=== PATIENT | female | born 1985 | race American Indian/Alaskan Native ===

== ENCOUNTER 2017-08-18 13:55 | Outpatient (CLI) | payer OTHER ==
[2017-08-18] MEDS ORDERED: LACTATED RINGERS 500 ML IV ONE (15:20)
[2017-08-18 15:38] VITALS: BP 109/67
[2017-08-18 15:45] LABS: Bacteria,Urine 1+ /HPF (Negative); Bilirubin,Urine NEG (Negative); Blood,Urine NEG (Negative); Color,Urine Yellow (Yellow); Protein,Urine <15 mg/dL mg/dL (Negative); Urobilinogen,Urine < 2.0 mg/dL (<2.0)
[2017-08-18] MEDS ORDERED: BRETHINE SUB-Q ONE ×2 (16:12→16:47)
== END 2017-08-18 17:15 | disposition home or self-care (01) ==
LOC: TRG 13:55
PROVIDERS: ATTEND Obstetrics & Gynecology
DX: Z34.93 Encounter for supervision of normal pregnancy, unspecified, third trimester (principal); Z3A.34 34 weeks gestation of pregnancy
CPT/HCPCS: 59025; 81001; 96360; 96361; 96372; J3105; J7120

== ENCOUNTER 2017-09-22 18:43 | Inpatient (IN) | payer OTHER ==
[2017-09-22] MEDS ORDERED: PEPCID IV ONE (19:37)
[2017-09-22] MEDS ORDERED: REGLAN IV ONE (19:37)
[2017-09-22] MEDS ORDERED: BICITRA PO ONE (19:37)
--- NOTE | 2017-09-22 19:39 | History and Physical Report ---
History of Present Illness Date of examination: 09/22/17 Date of admission: 09/22/17 18:43 Chief complaint: Breech in labor History of present illness: Pt is a 31yo BF EDC 09/24/17; EGA 39 5/7 weeks presents to L&D in early labor and Breech presentation. She received care at [facility] since 20 weeks, and course has been unremarkable except for history of PTD. records are available and GBS is Negative. Past History Past Medical History: no pertinent history Past Surgical History: no surgical history Family/Genetic History: none Social history: no significant social history, - Obstetrical History Expected Date of Delivery: 09/24/17 Actual Gestation: 39 Week(s) 5 Day(s) : 4 Medications and Allergies Allergies Allergy/AdvReac Type Severity Reaction Status Date / Time No Known Allergies Allergy Unverified 08/18/17 13:56 Active Meds: Active Medications Lactated Ringer's (Lactated Ringers) 1,000 mls @ 125 mls/hr IV DIRECT CONSTANTINO Review of Systems All systems: negative - Physical Exam Breasts: Positive: deferred Cardiovascular: Regular rate Lungs: Positive: Clear to auscultation Abdomen: Positive: normal appearance Genitourinary (Female): Positive: normal external genitalia Vagina: Positive: normal moisture Uterus: Positive: enlarged Extremities: Positive: normal - Obstetrical FHR: category 1 Uterine Contraction Monitor Mode: External Cervical Dilatation: 3 (in office) Cervical Effacement Percentage: 50 (in office) Uterine Contraction Pattern: Regular Uterine Tone Measurement Phase: Contraction Uterine Contraction Intensity: Mild Results Result Diagrams: 09/22/17 19:10 All other labs normal. Assessment and Plan - Patient Problems (1) 39 weeks gestation of Onset Date: 09/22/17 Current Visit: Yes Status: Acute Plan to address problem: A: IUP @ 39 5/7 weeks in labor Breech presentation P: Admit to L&D for C Section (2) Breech presentation Onset Date: 09/22/17 Current Visit: Yes Status: Acute Qualifiers: Fetus number: single or unspecified fetus Qualified Code(s): O32.1XX0 - Maternal care for breech presentation, not applicable or unspecified
[2017-09-22 19:41] LABS: Hematocrit 38.5 % (30.3-42.9); Hemoglobin 12.9 gm/dl (10.1-14.3); Mean Corpuscular HGB Conc 33 % (30-34); Mean Corpuscular Hemoglobin 29 pg (28-32); Mean Corpuscular Volume 87 fl (79-97); Platelet Count 176 K/mm3 (140-440); Red Blood Count 4.43 M/mm3 (3.65-5.03); Red Cell Distribution Width 12.9 % (13.2-15.2)
[2017-09-22] MEDS ORDERED: LACTATED RINGERS 1,000 ML IV SCH (20:00)
[2017-09-22] MEDS ORDERED: PITOCin/NS 20 UNIT/1000ML DRIP 20 UNITS/1,000 ML BAG IV SCH ×2 (20:00→22:00)
[2017-09-22] MEDS ORDERED: ANCEF/STERILE WATER 2 GM/20 ML 2 GM/20 ML SYRINGE IV NR (20:00)
[2017-09-22] MEDS: LACTATED RINGERS 1,000 ML IV SCH ×2 (20:23→20:24)
[2017-09-22] MEDS ORDERED: XYLOCAINE CARDIAC IV ONE (20:48)
[2017-09-22] MEDS ORDERED: XYLOCAINE MPF 2% ONE (20:48)
[2017-09-22] MEDS ORDERED: WATER FOR IRRIG STERILE IR ONE (20:56)
[2017-09-22] MEDS ORDERED: NACL 0.9% IR ONE (20:56)
[2017-09-22] MEDS ORDERED: SUBLIMAZE ONE (21:22)
[2017-09-22] MEDS ORDERED: TORADOL ONE (21:22)
--- NOTE | 2017-09-22 21:43 | Operative Report ---
Operative Report Operative Report: Date of procedure: 09/22/2017 Pre-operative diagnosis: 1. Intrauterine at 39 5/7 weeks in labor 2. Breech presentation Post-operative diagnosis: Same Procedure name(s): Primary low transverse section Surgeon: Rene Almazan MD Armature And Rotor Winder: None Anesthesia: Epidural anesthesia by Dr. Sánchez EBL: 500 mL Findings: A 3453 g female Apgars 8 at 1 minute and 9 at 5 minutes. Ranulfo breech presentation. Clear amniotic fluid. Normal uterus. Normal tubes and ovaries bilaterally. Procedure: After the patient was prepped and draped in usual sterile fashion, and after satisfactory level of epidural anesthesia was obtained, the skin knife was used to make a transverse skin incision. The incision was excised down to layer of the fascia, which was nicked in the midline and extended laterally using the Bovie cautery. The rectus muscles were dissected off the rectus fascia both superiorly and inferiorly. The rectus bellies in the midline, and the peritoneum was entered under direct visualization. The peritoneal incision was extended superiorly and inferiorly. A bladder flap was created and the bladder blade was then placed. The uterus was scored in a curvilinear linear fashion, entered in the midline revealing clear amniotic fluid. The 's Ranulfo breech was delivered onto the surgical field, the rest of the 's body was delivered, cord was doubly clamped and cut and the was handed to the waiting respiratory team. The placenta was manually removed from the uterus, and the uterus removed from its normal anatomical position. After gentle uterine lavage, the incision was inspected and found to be without extensions. It was then closed in 2 layers using 0 Vicryl suture in a running interlocking fashion, the second layer imbricating the first. After good hemostasis was achieved, copious amounts or irrigation was performed, and the gutters were suctioned free of blood and blood clots. Tisseel sealant was sprayed across the uterine incision. The uterus was then returned to its normal anatomical position, and after excellent hemostasis assured, the peritoneum was re-approximated using 3-0 Vicryl suture in a running interlocking fashion, and then the rectus muscles were re-approximated using 3-0 Vicryl suture in a [id number] configuration. The fascia was then re-approximated using 0 Vicryl suture in running interlocking fashion. The subcutaneous layer was made hemostatic using Bovie cautery, the Tisseel sealant was sprayed across the fascial incision and the skin edges re- approximated using 4-0 Vicryl suture in a sub-cuticular fashion. Patient tolerated the procedure well was transported to recovery in stable condition.
[2017-09-22] MEDS ORDERED: ZOFRAN IV PRN (21:47)
[2017-09-22] MEDS ORDERED: MYLICON PO PRN (21:47)
[2017-09-22] MEDS ORDERED: NARCAN 0.4 MG/1 ML IV PRN (21:47)
[2017-09-22] MEDS ORDERED: PERCOCET 5/325 PO PRN (21:47)
[2017-09-22] MEDS ORDERED: TORADOL IV PRN (21:47)
[2017-09-22] MEDS ORDERED: LANSINOH TP PRN (21:47)
[2017-09-22] MEDS ORDERED: TYLENOL PO PRN (21:47)
[2017-09-22] MEDS ORDERED: TUCKS PAD TP PRN (21:47)
[2017-09-22] MEDS ORDERED: D5LR 1,000 ML IV SCH (22:00)
[2017-09-22] MEDS ORDERED: SODIUM CHLORIDE FLUSH SYRINGE 10 ML IV NR (22:00)
[2017-09-22] MEDS ORDERED: MILK OF MAGNESIA PO PRN (22:00)
[2017-09-22] MEDS ORDERED: ANCEF/NS 1 GM/50 ML 1 GM/50 ML BAG IV SCH (22:00)
[2017-09-22] MEDS ORDERED: SENOKOT PO PRN (22:00)
[2017-09-23] MEDS ORDERED: BENADRYL PO PRN (01:40)
[2017-09-23] MEDS: ceFAZolin 1 GM in NACL 0.9% 20 ML IV SCH ×2 (05:19→12:47)
--- NOTE | 2017-09-23 09:12 | Progress Note ---
Assessment and Plan - Patient Problems (1) S/P primary low transverse Current Visit: Yes Status: Acute Plan to address problem: POD 1 - stable Continue routine postop orders Discontinue IV hydration, mancia catheter & sequential compression device 12-hrs post C/S Ambulation encouraged, as tolerated Anticipate discharge in 24-48hrs Subjective - Subjective Date of service: 09/23/17 Principal diagnosis: s/p Primary LTCS, POD 1 Patient reports: appetite normal, pain well controlled, other (not ambulating yet. IV catheter, sequential compression device and mancia catheter still in place), no flatus, no bowel movement Fackler: doing well, nursing well Objective - Vital Signs Latest vital signs: Vital Signs Temp Pulse Resp BP BP Pulse Ox 09/23/17 07:30 98.4 F 16 114/69 09/23/17 04:15 98.4 F 71 18 123/78 98 09/23/17 01:06 97.8 F 67 20 120/78 100 09/22/17 21:44 97.7 F 18 09/22/17 20:16 98.7 F Intake and Output 09/22/17 09/23/17 09/23/17 23:59 07:59 15:59 Intake Total 1802.083 500 Output Total 1550 1200 Balance 252.083 -700 Intake: IV 1802.083 Lactated Ringers 1,000 ml 2.083 @ 125 mls/hr IV DIRECT CONSTANTINO Rx#:[id number] Oral 200 Intake, Free Water 300 Output: Urine 1550 1200 Indwelling Catheter 600 Uretheral (Mancia) 600 600 Other: Total, Intake Amount 200 Total, Output Amount 600 Weight 63.957 kg Estimated Blood Loss 500 - Exam Vulva: both: normal Uterus: Present: normal, firm, fundal height at umbilicus Incision: Present: normal, dry, dressed - Labs Labs: Abnormal lab results 09/22/17 Range/Units 19:10 RDW 12.9 L (13.2-15.2) %
[2017-09-23 09:19] LABS: Hematocrit 31.1 % (30.3-42.9); Hemoglobin 10.6 gm/dl (10.1-14.3)
[2017-09-23] MEDS ORDERED: BOOSTRIX IM ONE (10:00)
[2017-09-23] MEDS ORDERED: M-M-R II VACCINE SUB-Q ONE (10:00)
[2017-09-23] MEDS: FEOSOL PO SCH (10:15)
[2017-09-23] MEDS: PRENATAL VITAMIN PO SCH (10:15)
[2017-09-23] MEDS: MOTRIN PO PRN ×2 (10:24→19:51)
[2017-09-23] MEDS: NORCO 5/325 PO PRN ×2 (10:24→19:50)
[2017-09-24] MEDS: MOTRIN PO PRN ×2 (01:19→14:29)
[2017-09-24] MEDS: NORCO 5/325 PO PRN ×2 (01:19→14:28)
--- NOTE | 2017-09-24 09:30 | Progress Note ---
Subjective Date of service: 09/24/17 Principal diagnosis: s/p Primary LTCS, POD 1 Interval history: Patient is doing well. No anesthetic related complaints. Objective - Constitutional Vitals: Vital Signs - 12hr 09/24/17 09/24/17 00:00 07:24 Temperature 98.3 F 98.4 F Pulse Rate 66 64 Respiratory 18 18 Rate Blood Pressure 83/55 Blood Pressure 101/55 [Left] O2 Sat by Pulse 100 Oximetry - Labs CBC & Chem 7: 09/23/17 09:04
--- NOTE | 2017-09-24 12:40 | Progress Note ---
Assessment and Plan A: /postop day 2. . Normal course. P: Encouraged pt. to ambulate. Continue iron supplementation. Anticipate discharge in AM. Subjective - Subjective Date of service: 09/24/17 Principal diagnosis: s/p Primary LTCS, POD 2 Interval history: Doing well. Ambulating without difficulty. Tolerating regular diet; voiding without difficulty; + flatus. . Denies headache, F/C, N/V, chest pain, cough, shortness of breath, abdominal pain, leg pain, or heavy bleeding. Pain well controlled. Taking iron supplement for anemia. Patient reports: appetite normal, voiding normally, pain well controlled, flatus , ambulating normally [place]: doing well Objective - Vital Signs Latest vital signs: Vital Signs Temp Pulse Resp BP BP Pulse Ox 09/24/17 11:17 98.3 F 18 96/54 09/24/17 11:15 68 09/24/17 07:24 98.4 F 64 18 83/55 100 09/24/17 00:00 98.3 F 66 18 101/55 09/23/17 21:05 98.6 F 70 18 103/64 09/23/17 16:00 98.7 F 66 18 101/78 Intake and Output 09/23/17 09/24/17 09/24/17 23:59 07:59 15:59 Intake Total 300 840 240 Balance 300 840 240 Intake: Oral 240 Intake, Free Water 300 840 Other: Total, Intake Amount 240 # Voids Void 1 1 1 - Exam Cardiovascular: Present: Regular rate, Normal S1, Normal S2 Lungs: Present: Clear to auscultation Abdomen: Present: normal appearance, soft, normal bowel sounds. Absent: distention, rigidity Uterus: Present: normal, firm, fundal height below umbilicus. Absent: bogginess , tenderness Extremities: Present: normal. Absent: tenderness, edema Incision: Present: dry, intact, dressed
[2017-09-24] MEDS: FEOSOL PO SCH (14:29)
[2017-09-25] MEDS: MOTRIN PO PRN (00:54)
[2017-09-25] MEDS: NORCO 5/325 PO PRN ×2 (00:54→09:14)
[2017-09-25 08:55] VITALS: BP 99/44
[2017-09-25] MEDS: FEOSOL PO SCH (09:15)
[2017-09-25] MEDS: PRENATAL VITAMIN PO SCH (09:15)
--- NOTE | 2017-09-25 12:17 | Progress Note ---
Assessment and Plan A: /postop day 3. Anemia. P: Discharge patient home today. Pt. declines contraception. Patient to continue vitamin and iron supplements at home. Advised pt. to avoid IC , heavy lifting, and strenuous exercise. Advised pt. to take showers instead of tub baths. Discussed with patient discharge instructions and warning signs. Advised pt. to follow up at [facility] in 1 week. Pt. voiced understanding of all instructions. Subjective - Subjective Date of service: 09/25/17 Principal diagnosis: s/p Primary LTCS, POD 3 Interval history: /postop day 3. Doing well. Patient desires discharge today. Ambulating without difficulty. Voiding without difficulty. Tolerating regular diet; voiding without difficulty; + flatus. . Denies headache, F/C, N/V, chest pain, cough, shortness of breath, abdominal pain, leg pain, symptoms of depression, or heavy bleeding. Pain well controlled. Taking iron supplement for anemia. Patient reports: appetite normal, voiding normally, pain well controlled, flatus , ambulating normally : doing well Objective - Vital Signs Latest vital signs: Vital Signs Temp Pulse Resp BP BP Pulse Ox 09/25/17 08:55 98.2 F 09/25/17 08:21 70 99/44 99 09/25/17 00:55 97.4 F L 76 18 104/60 09/24/17 16:00 98.7 F 74 18 95/54 Intake and Output 09/24/17 09/25/17 09/25/17 23:59 07:59 15:59 Intake Total 480 480 Balance 480 480 Intake: Oral 480 Intake, Free Water 480 Other: Total, Intake Amount 480 # Voids Void 2 1 - Exam Cardiovascular: Present: Regular rate, Normal S1, Normal S2 Lungs: Present: Clear to auscultation Abdomen: Present: normal appearance, soft, normal bowel sounds. Absent: distention, tenderness, guarding, rigidity Uterus: Present: normal, firm, fundal height below umbilicus. Absent: bogginess , tenderness Extremities: Present: normal. Absent: tenderness, edema Incision: Present: normal, dry, intact
--- NOTE | 2017-09-25 12:23 | Discharge Summary ---
Providers - Providers Date of Admission: 09/22/17 18:43 Date of discharge: 09/25/17 Attending physician: STACIE CASTELLANO MD None Primary care physician: STACIE CASTELLANO MD Hospitalization Reason for admission: section Delivery: Procedure: primary low transverse Incision: normal, dry, intact Other procedures: none complications: none Discharge diagnosis: IUP at term delivered baby: female Pertinent studies: Labs Hospital course: Normal course Condition at discharge: Good Disposition: DC-01 TO HOME OR SELFCARE - Discharge Diagnoses (1) Term delivered Status: Acute Plan - Discharge Medications Prescriptions: Ferrous Sulfate [Feosol 325 MG tab] 325 mg PO BID #60 tablet HYDROcodone/APAP 5-325 [[place] 5/325] 1 each PO Q6HR PRN #30 tablet PRN Reason: Pain Ibuprofen [Motrin] 800 mg PO Q8HR PRN #30 tablet PRN Reason: Moder Pain Unrelieved By [place] Vit Calc,Iron,Folic [ Vitamins] 1 each PO DAILY #30 tablet - Provider Discharge Summary Activity: routine, no sex for 6 weeks, no heavy lifting 4 weeks, no strenuous exercise Diet: routine Instructions: routine Additional instructions: Call your doctor immediately for: * Fever > 100.5 * Heavy vaginal bleeding ( >1 pad per hour) * Severe persistent headache * Shortness of breath * Reddened, hot, painful area to leg or breast * Pain or redness or drainage from incision - Follow up plan Follow up: STACIE CASTELLANO MD [Primary Care Provider] - 7 Days
== END 2017-09-25 15:00 | disposition home or self-care (01) | DRG 766 ==
LOC: APU 18:43 → OB 23:32
PROVIDERS: ADMIT Obstetrics & Gynecology; ATTEND Obstetrics & Gynecology
PROC: 10D00Z1 Extraction of Products of Conception, Low, Open Approach (ICD-10-PCS; principal; 2017-09-22)
PROC: 3E0234Z Introduction of Serum, Toxoid and Vaccine into Muscle, Percutaneous Approach (ICD-10-PCS; 2017-09-23)
DX: O32.1XX0 Maternal care for breech presentation, not applicable or unspecified (principal); O99.02 Anemia complicating childbirth; D64.9 Anemia, unspecified; Z3A.39 39 weeks gestation of pregnancy; Z37.0 Single live birth; Z23 Encounter for immunization
CPT/HCPCS: 36415; 85014; 85018; 85027; 86592; 86850; 86900; 86901; C9250; J0690; J1885; J2001; J2590; J2765; J3010; J7120; J7121